=== PATIENT | male | born 1990 | race Caucasian/White ===

== ENCOUNTER 2016-11-05 20:24 | Emergency (ER) | payer SELFPAY ==
[2016-11-05 20:31] VITALS: RESP 18; TEMP 98.2
--- NOTE | 2016-11-05 21:13 | EDPHY ---
H & P Time Seen by Provider: 11/05/16 20:55 HPI/ROS: CHIEF COMPLAINT: Head injury HISTORY OF PRESENT ILLNESS: Patient is a 26-year-old male who presents emergency department after falling off his skateboard and striking his head. He is unsure if he lost consciousness. He complains of pain on the right side of his head. He has had no nausea or vomiting. His headache is moderate. He has no visual change. No neck pain. No weakness, numbness or focal deficits. REVIEW OF SYSTEMS: My complete review of systems is negative except as mentioned in the HPI. Past Medical/Surgical History: Denies Past surgical history: Denies Social history: The patient smokes cigarettes and uses marijuana. Smoking Status: Heavy smoker Physical Exam: Vital signs noted. Heart rate 103 GENERAL: Well-appearing, in no acute distress, alert. HEAD: no visible trauma. Patient has mild tenderness palpation on the right scalp. There is no crepitus or step-off. EYES: PERRLA, EOMI, normal to inspection. ENT: Airway intact, no dental or oral injury, no malocclusion, no hemotympanum , normal external examination. NECK: The trachea is midline. There is no crepitus. The C-spine is nontender. NEXUS criteria is negative (no midline tenderness, no distracting injury, no altered mental status, no recent alcohol use, no focal neurologic deficit). RESPIRATORY: Clear to auscultation bilaterally, no rales, rhonchi or wheezing. There is no crepitus or palpable rib fractures. CVS: Regular rate and rhythm, no rubs, murmurs, or gallops. ABDOMEN: Soft, nontender, nondistended, normal bowel sounds, no bruising or abrasions. Pelvis: Stable. No tenderness palpation. Hips full range of motion. BACK: Normal to inspection, no spinal tenderness, no spinal step off, no notable bruising or abrasions. SKIN: Normal color, warm, dry. No pallor or diaphoresis. EXTREMITIES: Right upper extremity: Atraumatic. No visible signs of trauma. No tenderness palpation. Neurovascular intact distally. Left upper extremity: Atraumatic. No visible signs of trauma. No tenderness palpation. Neurovascular intact distally. Right lower extremity: Atraumatic. No visible signs of trauma. No tenderness palpation. Neurovascular intact distally. Left lower extremity: Atraumatic. No visible signs of trauma. No tenderness palpation. Neurovascular intact distally. NEURO/PSYCH: Alert and oriented x 3, GCS 15, normal mood and affect, normal motor sensory exam. Constitutional: Initial Vital Signs Temperature (C) 36.8 C 11/05/16 20:28 Heart Rate 103 H 11/05/16 20:28 Respiratory Rate 18 11/05/16 20:28 Blood Pressure 120/72 11/05/16 20:28 O2 Sat (%) 92 11/05/16 20:28 O2 Delivery Mode Room Air Allergies/Adverse Reactions: No Known Allergies Allergy (Unverified 11/05/16 20:31) Home Medications: Medication Instructions Recorded NK [No Known Home Meds] 11/05/16 Medical Decision Making - Diagnostics Imaging Results: Imaging Impressions Head CT 11/05/16 21:10 Impression: 1. Normal CT brain without contrast. 2. Right maxillary sinus mucous retention cyst or polyp. 3. No epidural or subdural hematoma. Findings and recommendations discussed with Emergency Department physician, ZACHARY LEMA at 21:34 hour, 11/05/2016. Final report concurs with initial preliminary interpretation. ED Course/Re-evaluation: In the emergency department I discussed possible etiologies with the patient. I answered all his questions. He consented to head CT. Head CT: No acute disease noted. Please refer the dictated report by the radiologist. I discussed the results with the patient. I answered all his questions. Patient and no new complaints. He had a nonfocal neuro exam. He is given warnings prior to leaving. He will return with worsening symptoms. I gave the patient follow-up information with concussion specialist. Differential Diagnosis: Differential includes but is not limited to concussion, contusion, subarachnoid hemorrhage, subdural hematoma, epidural hematoma, spinal injury Departure - Departure Disposition: Home, Routine, Self-Care Clinical Impression: Head injury Qualifiers: Encounter type: initial encounter Qualified Code(s): S09.90XA - Unspecified injury of head, initial encounter Condition: Good Instructions: Head Injury (ED) Additional Instructions: Return with increasing headache, focal deficits, visual change, vomiting or any other concerns. Referrals: Annabelle Claudio MD [Medical Doctor] - 5-7 days, if not improved
[2016-11-05 22:14] VITALS: BP 127/77; PULSE 97; O2SAT 94
== END 2016-11-05 22:15 | disposition home or self-care (01) ==
DX: S09.90XA Unspecified injury of head, initial encounter (principal); F17.200 Nicotine dependence, unspecified, uncomplicated; V00.131A Fall from skateboard, initial encounter; Y93.51 Activity, roller skating (inline) and skateboarding